=== PATIENT | male | born 1965 | race Hispanic/Latino ===

== ENCOUNTER → 2016-09-17 | Outpatient (CLI) | payer OTHER ==
[2016-09-17 13:15] LABS: ALBUMIN/GLOBULIN RATIO 1.33 (1.00-1.93); ALKALINE PHOSPHATASE 57 U/L (45-117); ALT/SGPT 33 U/L (12-78); ANION GAP 5 MEQ/L (8-16); AST/SGOT 21 U/L (15-37); BASO % 0.6 % (0.0-1.0); BLOOD UREA NITROGEN 21 MG/DL (7-18); CARBON DIOXIDE LEVEL 31 MEQ/L (21-32); CHLORIDE LEVEL 105 MEQ/L (98-107); CHOLESTEROL LEVEL 217 MG/DL (<200); CREATININE FOR GFR 1.14 MG/DL (0.70-1.30); EOS # 0.2 K/mm3 (0.0-0.50); EOS % 3.5 % (0.0-3.0); GLOMERULAR FILTRATION RATE > 60.0 (>60); GLUCOSE, FASTING 97 MG/DL (70-105); LARGE UNSTAINED CELL # 0.1 K/mm3 (0.0-0.4); LYMPH # 1.6 K/mm3 (1.5-4.5); LYMPH % 28.1 % (24.0-44.0); MAGNESIUM LEVEL 2.1 MG/DL (1.8-2.4); MEAN CORPUSCULAR HEMOGLOBIN 31.8 pg (27.0-33.0); MEAN CORPUSCULAR HGB CONC 34.5 g/dl (32.0-36.5); MEAN CORPUSCULAR VOLUME 92.2 fl (80.0-96.0); MONO # 0.4 K/mm3 (0.0-0.8); MONO % 7.6 % (0.0-5.0); NEUTROPHILS # 3.2 K/mm3 (1.8-7.7); NEUTROPHILS % 58.2 % (36.0-66.0); PLATELET COUNT, AUTOMATED 195 k/mm3 (150-450); POTASSIUM SERUM 4.3 MEQ/L (3.5-5.1); RED CELL DISTRIBUTION WIDTH 11.6 % (11.5-14.5); SODIUM LEVEL 141 MEQ/L (136-145); TRIGLYCERIDES LEVEL 82 MG/DL (<150); WHITE BLOOD COUNT 5.4 K/mm3 (4.0-10.0)
== END ==
LOC: M WUC 08:32
PROVIDERS: ATTEND Family Medicine
DX: R73.01 Impaired fasting glucose (principal)
CPT/HCPCS: 36415; 80053; 80061; 83036; 83735; 85025; G0103

== ENCOUNTER → 2016-11-30 | Outpatient (CLI) | payer OTHER ==
[~2016-11-30] MED LIST: CEPH500C PO; NAPR375T2 PO
[2016-11-30 13:47] LABS: BASO % 0.3 % (0.0-1.0); EOS # 0.1 K/mm3 (0.0-0.50); LARGE UNSTAINED CELL # 0.1 K/mm3 (0.0-0.4); LYMPH # 1.5 K/mm3 (1.5-4.5); LYMPH % 12.1 % (24.0-44.0); MEAN CORPUSCULAR HEMOGLOBIN 31.4 pg (27.0-33.0); MEAN CORPUSCULAR HGB CONC 34.1 g/dl (32.0-36.5); MEAN CORPUSCULAR VOLUME 92.1 fl (80.0-96.0); MONO # 0.8 K/mm3 (0.0-0.8); MONO % 7.3 % (0.0-5.0); NEUTROPHILS # 9.1 K/mm3 (1.8-7.7); NEUTROPHILS % 78.3 % (36.0-66.0); PLATELET COUNT, AUTOMATED 198 k/mm3 (150-450); RED CELL DISTRIBUTION WIDTH 11.7 % (11.5-14.5); WHITE BLOOD COUNT 11.6 K/mm3 (4.0-10.0)
== END ==
LOC: M WUC 09:24
PROVIDERS: ATTEND Physician Assistant
DX: M25.562 Pain in left knee (principal)

== ENCOUNTER 2016-12-03 14:19 | Inpatient (IN) | payer OTHER ==
[~2016-12-03] VITALS: Ht 182.9 cm; Wt 86.1 kg
[2016-12-03] MEDS ORDERED: ONDANSETRON 4MG/2ML VIAL (J2405) IV PRN (14:45)
[2016-12-03] MEDS ORDERED: PERCOCET 5MG/325MG TAB PO PRN (14:45)
[2016-12-03] MEDS ORDERED: ACETAMINOPHEN TAB 650MG DOSE (2X325MG) PO PRN (14:45)
[2016-12-03] MEDS ORDERED: CEPH500C PO (16:43)
[2016-12-03] MEDS ORDERED: NAPR375T2 PO (16:43)
[2016-12-03 16:54] LABS: BASO % 0.2 % (0.0-1.0); EOS # 0.2 K/mm3 (0.0-0.50); EOS % 2.4 % (0.0-3.0); LARGE UNSTAINED CELL # 0.1 K/mm3 (0.0-0.4); LARGE UNSTAINED CELL % 1.4 % (0.0-4.0); LYMPH # 1.6 K/mm3 (1.5-4.5); LYMPH % 16.2 % (24.0-44.0); MEAN CORPUSCULAR HEMOGLOBIN 31.8 pg (27.0-33.0); MEAN CORPUSCULAR HGB CONC 34.9 g/dl (32.0-36.5); MEAN CORPUSCULAR VOLUME 91.2 fl (80.0-96.0); MONO # 0.6 K/mm3 (0.0-0.8); NEUTROPHILS # 6.5 K/mm3 (1.8-7.7); NEUTROPHILS % 72.7 % (36.0-66.0); PLATELET COUNT, AUTOMATED 266 k/mm3 (150-450); RED CELL DISTRIBUTION WIDTH 11.5 % (11.5-14.5); WHITE BLOOD COUNT 8.9 K/mm3 (4.0-10.0)
[2016-12-03] MEDS ORDERED: cefTRIAXone SOD 2 GM in D5W MINI-BAG PLUS 50 ML IV SCH (17:00)
[2016-12-03 17:02] VITALS: BP 153/85
[2016-12-03 17:17] LABS: ALBUMIN 3.7 GM/DL (3.2-5.2); ALBUMIN/GLOBULIN RATIO 0.86 (1.00-1.93); ALKALINE PHOSPHATASE 65 U/L (45-117); ALT/SGPT 27 U/L (12-78); ANION GAP 6 MEQ/L (8-16); AST/SGOT 24 U/L (15-37); BILIRUBIN,TOTAL 0.6 MG/DL (0.2-1.0); BLOOD UREA NITROGEN 19 MG/DL (7-18); CALCIUM LEVEL 9.2 MG/DL (8.5-10.1); CARBON DIOXIDE LEVEL 30 MEQ/L (21-32); CHLORIDE LEVEL 103 MEQ/L (98-107); CREATININE FOR GFR 1.06 MG/DL (0.70-1.30); GLOMERULAR FILTRATION RATE > 60.0 (>56); GLUCOSE, FASTING 89 MG/DL (70-105); SODIUM LEVEL 139 MEQ/L (136-145)
--- NOTE | 2016-12-03 17:56 | REP ---
Clinical: Left lower extremity pain . Technique: Ervin scale and color Doppler evaluation using linear high frequency transducer. Findings: Ultrasound examination of the left lower extremity deep venous structures from the common femoral vein to the popliteal vein demonstrates normal compressibility flow and wave patterns in response to respiration and augmentation. There is no evidence for deep venous thrombosis. Incidental note is made of duplicated mid to distal superficial femoral vein along with reflux at the popliteal vein. Impression: No evidence for deep venous thrombosis. Signed by Alexei Lindo MD 12/03/2016 05:47 P
[2016-12-03] MEDS: VANCOMYCIN HCL 1,000 MG, VIAL MATE ADAPTER 1 EACH in D5W 250 ML IV SCH ×2 (18:08→21:01)
[2016-12-03] MEDS ORDERED: ISOVUE-370 76% 100ML VIAL (Q9967) As Ordered ONE (19:11)
[2016-12-03] MEDS ORDERED: VANCOMYCIN HCL 500 MG in D5W MINI-BAG PLUS 100 ML IV ONE (21:00)
[2016-12-03 22:00] VITALS: BP 138/82
[2016-12-03] MEDS: cefTRIAXone SOD 2 GM in D5W MINI-BAG PLUS 50 ML IV SCH (22:28)
[2016-12-04] MEDS: VANCOMYCIN HCL 1,000 MG, VIAL MATE ADAPTER 1 EACH in D5W 250 ML IV SCH ×2 (05:38→17:27)
[2016-12-04 06:00] VITALS: BP 125/62
[2016-12-04 06:15] LABS: BASO % 0.4 % (0.0-1.0); EOS # 0.3 K/mm3 (0.0-0.50); EOS % 3.6 % (0.0-3.0); LARGE UNSTAINED CELL # 0.2 K/mm3 (0.0-0.4); LARGE UNSTAINED CELL % 2.6 % (0.0-4.0); LYMPH # 1.6 K/mm3 (1.5-4.5); LYMPH % 22.7 % (24.0-44.0); MEAN CORPUSCULAR HEMOGLOBIN 32.5 pg (27.0-33.0); MEAN CORPUSCULAR HGB CONC 35.1 g/dl (32.0-36.5); MEAN CORPUSCULAR VOLUME 92.5 fl (80.0-96.0); MONO # 0.6 K/mm3 (0.0-0.8); NEUTROPHILS # 4.5 K/mm3 (1.8-7.7); NEUTROPHILS % 62.8 % (36.0-66.0); PLATELET COUNT, AUTOMATED 309 k/mm3 (150-450); RED CELL DISTRIBUTION WIDTH 11.3 % (11.5-14.5); WHITE BLOOD COUNT 7.2 K/mm3 (4.0-10.0)
[2016-12-04 06:39] LABS: ERYTHROCYTE SEDIMENTATION RATE 39 mm/hr (0-20)
[2016-12-04 06:52] LABS: ALBUMIN 3.6 GM/DL (3.2-5.2); ALBUMIN/GLOBULIN RATIO 0.97 (1.00-1.93); ALKALINE PHOSPHATASE 66 U/L (45-117); ALT/SGPT 26 U/L (12-78); ANION GAP 7 MEQ/L (8-16); AST/SGOT 21 U/L (15-37); BILIRUBIN,TOTAL 0.6 MG/DL (0.2-1.0); BLOOD UREA NITROGEN 15 MG/DL (7-18); CALCIUM LEVEL 8.6 MG/DL (8.5-10.1); CARBON DIOXIDE LEVEL 28 MEQ/L (21-32); CHLORIDE LEVEL 105 MEQ/L (98-107); CREATININE FOR GFR 1.01 MG/DL (0.70-1.30); GLOMERULAR FILTRATION RATE > 60.0 (>56); GLUCOSE, FASTING 89 MG/DL (70-105); POTASSIUM SERUM 4.6 MEQ/L (3.5-5.1); SODIUM LEVEL 140 MEQ/L (136-145); TOTAL PROTEIN 7.3 GM/DL (6.4-8.2)
[2016-12-04] MEDS: ENOXAPARIN 40 MG/0.4 ML SYRINGE (J1650) SC SCH (09:10)
[2016-12-04 14:00] VITALS: BP 136/63
--- NOTE | 2016-12-04 14:30 | REP ---
Clinical: Cellulitis. Evaluate for septic arthritis and abscess. Technique: Axial contrast enhanced images from the femoral metaphysis to the distal tibial metadiaphysis using 100 ml Isovue 370 intravenous contrast material with coronal and sagittal re-formations. Findings: Extensive subcutaneous infiltration and inflammatory stranding is appreciated with small amounts of ill-defined fluid along the anterior lateral margin of the holguin. Findings are compatible with cellulitis. There is minimal amount of joint fluid without significant effusion. There is no abscess or drainable collection. The visualized muscular compartments and neural vascular bundle appear relatively normal. The osseous structures are intact. Impression: Evidence for cellulitis and minimal, likely normal amount of joint fluid. No line No significant joint or suprapatellar effusion and no evidence for drainable collection/abscess. Signed by Alexei Lindo MD 12/04/2016 02:21 P
--- NOTE | 2016-12-04 15:41 | IPNPDOC ---
Subjective Date Seen The patient was seen on 12/04/16. Subjective Chief Complaint/HPI The patient is a 51-year-old male admitted with a reason for visit of Cellulitis. Constitutional: Reports: Chills Eyes: Denies: Pain ENT: Denies: Head Aches Pulmonary: Denies: Dyspnea Cardiovascular: Denies: Chest Pain Gastrointestinal: Denies: Nausea, Vomiting Genitourinary: Denies: Dysuria Hematologic: Denies: Bruising Objective Physical Examination Eye Exam: Positive: PERRLA ENT Exam: Positive: Atraumatic Neck Exam: Positive: Supple Chest Exam: Positive: Clear to auscultation Heart Exam: Positive: Rate Normal Abdomen Exam: Positive: Normal bowel sounds Extremity Exam: Positive: Edema (LLE minimal, 50% improved induration/warmth/ edema) Assessment /Plan Problems (1) Cellulitis Status: Acute Response to Treatment: Improving Problem Text: D2 vanco/ceftriaxone failed outpatient cephalexin 500 TID 12/04 Tm 99.1, WBC down to 7.2 , ESR 49-39, CRP 11-8 12/03 BCX - x 2 12/03 - LLE DVT US 12/03 CT L LE s/c (KELLY non-functional), c/w cellulitis L LE anterior/lateral aspect, minimal/normal joint fluid, no abscess Plan/VTE VTE Prophylaxis Ordered?: Yes Disposition plan home 12/05 vs 12/06 VS, I&O, 24H, Fishbone Vital Signs/I&O Vital Signs Date Time Temp Pulse Resp B/P (MAP) Pulse Ox O2 Delivery O2 Flow Rate FiO2 12/04/16 14:00 98.6 69 17 136/63 (87) 96 Room Air I&O- Last 24 Hours up to 6 AM 12/04/16 06:00 Intake Total 860 ml Output Total 0 ml Balance 860 ml Laboratory Data 24H LABS Laboratory Tests 2 12/03/16 16:36: White Blood Count 8.9, Red Blood Count 4.39, Hemoglobin 14.0, Hematocrit 40.0L, Mean Corpuscular Volume 91.2, Mean Corpuscular Hemoglobin 31.8, Mean Corpuscular Hemoglobin Concent 34.9, Red Cell Distribution Width 11.5, Platelet Count 266, Neutrophils (%) (Auto) 72.7H, Lymphocytes (%) (Auto) 16.2L, Monocytes (%) (Auto) 7.0H, Eosinophils (%) (Auto) 2.4, Basophils (%) (Auto) 0.2 , Neutrophils # (Auto) 6.5, Lymphocytes # (Auto) 1.6, Monocytes # (Auto) 0.6, Eosinophils # (Auto) 0.2, Basophils # (Auto) 0.0, Large Unclassified Cells % 1.4 , Large Unclassified Cells # 0.1, Erythrocyte Sedimentation Rate 49H, Anion Gap 6L, Glomerular Filtration Rate > 60.0, Blood Urea Nitrogen 19H, Creatinine 1.06 , Sodium Level 139, Potassium Level 4.0, Chloride Level 103, Carbon Dioxide Level 30, Calcium Level 9.2, Aspartate Amino Transf (AST/SGOT) 24, Alanine Aminotransferase (ALT/SGPT) 27, Alkaline Phosphatase 65, Total Bilirubin 0.6, Total Protein 8.0, Albumin 3.7, C-Reactive Protein, Quantitative 10.50H, Albumin /Globulin Ratio 0.86L 12/04/16 05:28: White Blood Count 7.2, Red Blood Count 4.65, Hemoglobin 15.1, Hematocrit 43.0, Mean Corpuscular Volume 92.5, Mean Corpuscular Hemoglobin 32.5, Mean Corpuscular Hemoglobin Concent 35.1, Red Cell Distribution Width 11.3L, Platelet Count 309, Neutrophils (%) (Auto) 62.8, Lymphocytes (%) (Auto) 22.7L, Monocytes (%) (Auto) 8.0H, Eosinophils (%) (Auto) 3.6H, Basophils (%) (Auto) 0.4 , Neutrophils # (Auto) 4.5, Lymphocytes # (Auto) 1.6, Monocytes # (Auto) 0.6, Eosinophils # (Auto) 0.3, Basophils # (Auto) 0.0, Large Unclassified Cells % 2.6 , Large Unclassified Cells # 0.2, Erythrocyte Sedimentation Rate 39H, Anion Gap 7L, Glomerular Filtration Rate > 60.0, Blood Urea Nitrogen 15, Creatinine 1.01, Sodium Level 140, Potassium Level 4.6, Chloride Level 105, Carbon Dioxide Level 28, Calcium Level 8.6, Aspartate Amino Transf (AST/SGOT) 21, Alanine Aminotransferase (ALT/SGPT) 26, Alkaline Phosphatase 66, Total Bilirubin 0.6, Total Protein 7.3, Albumin 3.6, C-Reactive Protein, Quantitative 8.35H, Albumin/ Globulin Ratio 0.97L CBC/BMP Laboratory Tests 12/03/16 16:36 Red Blood Count 4.39, Mean Corpuscular Volume 91.2, Mean Corpuscular Hemoglobin 31.8, Mean Corpuscular Hemoglobin Concent 34.9, Red Cell Distribution Width 11.5 , Neutrophils (%) (Auto) 72.7 H, Lymphocytes (%) (Auto) 16.2 L, Monocytes (%) ( Auto) 7.0 H, Eosinophils (%) (Auto) 2.4, Basophils (%) (Auto) 0.2, Neutrophils # (Auto) 6.5, Lymphocytes # (Auto) 1.6, Monocytes # (Auto) 0.6, Eosinophils # ( Auto) 0.2, Basophils # (Auto) 0.0, Calcium Level 9.2, Aspartate Amino Transf ( AST/SGOT) 24, Alanine Aminotransferase (ALT/SGPT) 27, Alkaline Phosphatase 65, Total Bilirubin 0.6, Total Protein 8.0, Albumin 3.7 12/04/16 05:28 Red Blood Count 4.65, Mean Corpuscular Volume 92.5, Mean Corpuscular Hemoglobin 32.5, Mean Corpuscular Hemoglobin Concent 35.1, Red Cell Distribution Width 11.3 L, Neutrophils (%) (Auto) 62.8, Lymphocytes (%) (Auto) 22.7 L, Monocytes (% ) (Auto) 8.0 H, Eosinophils (%) (Auto) 3.6 H, Basophils (%) (Auto) 0.4, Neutrophils # (Auto) 4.5, Lymphocytes # (Auto) 1.6, Monocytes # (Auto) 0.6, Eosinophils # (Auto) 0.3, Basophils # (Auto) 0.0, Calcium Level 8.6, Aspartate Amino Transf (AST/SGOT) 21, Alanine Aminotransferase (ALT/SGPT) 26, Alkaline Phosphatase 66, Total Bilirubin 0.6, Total Protein 7.3, Albumin 3.6 Microbiology Microbiology 12/03/16 Blood Culture, Received Pending 12/03/16 Blood Culture, Received Pending Myles Clemente M.D. December 04, 2016 15:41
[2016-12-04] MEDS: cefTRIAXone SOD 2 GM in D5W MINI-BAG PLUS 50 ML IV SCH (21:30)
[2016-12-04 21:58] VITALS: BP 137/73
[2016-12-05] VITALS: BP 120/57
--- NOTE | 2016-12-05 02:11 | CR ---
DATE OF CONSULTATION: 12/04/2016 I was asked to see this gentleman at the request of a care drafter commercial for Dr. Clemente to evaluate potential knee infection. HISTORY: This 51-year-old male was doing some work under a crawlspace, developed some redness and swelling in the leg. He was seen by primary provider who put him on oral antibiotics, which did not seem to work. The swelling became worse. He was sent into the emergency room (ER) with swelling in the left lower extremity. They did a CT scan that did not reveal any joint effusion. He was admitted to the floor where the nurse did not think he had a joint infection, but thought he had a cellulitis. He was on antibiotics on the floor and had a dramatic response so far to antibiotics over the course of the last 12 hours. ALLERGIES: He has no known drug allergies. He is otherwise healthy. EXAMINATION: No joint effusion. Mild edema left lower extremity. Currently no erythema in the left lower extremity. He is able flex and extend the knee actively in his room today. IMPRESSION: No evidence of joint effusion, likely cellulitis, which seems to be resolving quickly with intravenous antibiotics. RECOMMENDATIONS: Continued followup plans with primary team, as needed orthopedic followup.
[2016-12-05 04:00] VITALS: BP 109/56
[2016-12-05] MEDS: VANCOMYCIN HCL 1,000 MG, VIAL MATE ADAPTER 1 EACH in D5W 250 ML IV SCH (06:30)
[2016-12-05 06:43] LABS: BASO % 0.6 % (0.0-1.0); EOS # 0.3 K/mm3 (0.0-0.50); EOS % 4.7 % (0.0-3.0); LARGE UNSTAINED CELL # 0.2 K/mm3 (0.0-0.4); LARGE UNSTAINED CELL % 2.5 % (0.0-4.0); LYMPH # 1.6 K/mm3 (1.5-4.5); MEAN CORPUSCULAR VOLUME 91.1 fl (80.0-96.0); MONO # 0.5 K/mm3 (0.0-0.8); MONO % 7.2 % (0.0-5.0); NEUTROPHILS # 4.4 K/mm3 (1.8-7.7); NEUTROPHILS % 63.9 % (36.0-66.0); PLATELET COUNT, AUTOMATED 257 k/mm3 (150-450); RED CELL DISTRIBUTION WIDTH 11.4 % (11.5-14.5); WHITE BLOOD COUNT 6.9 K/mm3 (4.0-10.0)
[2016-12-05 07:09] LABS: ALBUMIN 2.9 GM/DL (3.2-5.2); ALBUMIN/GLOBULIN RATIO 0.85 (1.00-1.93); ALKALINE PHOSPHATASE 58 U/L (45-117); ALT/SGPT 24 U/L (12-78); ANION GAP 7 MEQ/L (8-16); AST/SGOT 14 U/L (15-37); BILIRUBIN,TOTAL 0.4 MG/DL (0.2-1.0); BLOOD UREA NITROGEN 23 MG/DL (7-18); CALCIUM LEVEL 8.2 MG/DL (8.5-10.1); CARBON DIOXIDE LEVEL 27 MEQ/L (21-32); CHLORIDE LEVEL 105 MEQ/L (98-107); CREATININE FOR GFR 0.95 MG/DL (0.70-1.30); GLOMERULAR FILTRATION RATE > 60.0 (>56); GLUCOSE, FASTING 101 MG/DL (70-105); POTASSIUM SERUM 4.4 MEQ/L (3.5-5.1); SODIUM LEVEL 139 MEQ/L (136-145); TOTAL PROTEIN 6.3 GM/DL (6.4-8.2)
[2016-12-05 08:00] VITALS: BP 131/67
[2016-12-05] MEDS: ENOXAPARIN 40 MG/0.4 ML SYRINGE (J1650) SC SCH (09:09)
--- NOTE | 2016-12-05 15:52 | DSES ---
DATE OF ADMISSION: 12/03/2016 DATE OF DISCHARGE: 12/05/2016 DISCHARGE DIAGNOSES: 1. Skin and soft tissue infection left lower extremity, failing outpatient treatment. 2. Recurrent intranasal ulcers. HOSPITAL COURSE: The patient's erythema, tenderness and induration of the left lower extremity markedly improved during hospitalization on ceftriaxone 2 grams intravenous (IV) daily, and vancomycin for goal trough of 15-20. On the day of discharge, his white count was down to 6.9. C-reactive protein (CRP) was down to 3.6 from 10.5 at admission. White count on admission was 8.9. By the day of discharge, he was not having night sweats and temperature maximum (T-max) on day of discharge was 99.1. Blood cultures times two were negative. Nasal methicillin-resistant Staphylococcus aureus (MRSA) screen was still pending. The patient has had no previous history of MRSA but he does work as a speech therapist, and has had chronic, recurrent nasal septal ulcerations. The patient was discharged to home on amoxicillin 500 by mouth three times a day for strep coverage, and Bactrim DS twice a day times 10 days for unlikely but possible MRSA infection. Nasal MRSA screen is pending as above. He is advised light duty at work with no work on his knees and to call back to the doctor electronic technician if there is any recurrence, worsening symptoms. He is advised to make followup with primary care provider (PCP) on 12/07/2016. The patient was also prescribed mupirocin ointment to use twice a day intranasally times 21 days.
== END 2016-12-05 13:42 | disposition home or self-care (01) | DRG 383 ==
LOC: EEVIPCON 16:17 → M MSPAV 16:17 → M PED 12-04 22:09
PROVIDERS: ADMIT Family Medicine; ATTEND Family Medicine
DX: L03.116 Cellulitis of left lower limb (principal); B95.62 Methicillin resistant Staphylococcus aureus infection as the cause of diseases classified elsewhere; J34.0 Abscess, furuncle and carbuncle of nose

== ENCOUNTER 2017-07-27 08:37 | Day surgery (SDC) | payer OTHER ==
[2017-07-27] MEDS ORDERED: PROPOFOL 200 MG/20 ML VIAL As Ordered (08:42)
[2017-07-27] MEDS ORDERED: LIDOCAINE 2% INJ 100 MG/5 ML SDV (FOR ANES.) As Ordered (08:42)
[2017-07-27] MEDS: NS 1,000 ML IV (08:45)
== END 2017-07-27 10:45 | disposition home or self-care (01) ==
LOC: M OPP 08:37
DX: Z12.11 Encounter for screening for malignant neoplasm of colon (principal); K22.10 Ulcer of esophagus without bleeding; K22.0 Achalasia of cardia; R12 Heartburn; K22.2 Esophageal obstruction; M54.5 Low back pain; F32.9 Major depressive disorder, single episode, unspecified; F41.9 Anxiety disorder, unspecified; L40.9 Psoriasis, unspecified
CPT/HCPCS: 45378

== ENCOUNTER → 2018-10-07 | Outpatient (CLI) | payer OTHER, BC ==
[~2018-10-07] MED LIST changes: +NAPR-855 PO; -NAPR375T2 PO
[2018-10-07 18:33] LABS: AMORPHOUS SEDIMENT MODERATE (NEGATIVE); APPEARANCE, URINE TURBID (CLEAR); BACTERIA, URINE AUTO NEGATIVE (NEGATIVE); BILIRUBIN, URINE AUTO NEGATIVE (NEGATIVE); BLOOD, URINE BLOOD NEGATIVE (NEGATIVE); COLOR, URINE AMBER (YELLOW); GLUCOSE, URINE (UA) AUTO NEGATIVE (NEGATIVE); KETONE, URINE AUTO NEGATIVE (NEGATIVE); LEUKOCYTE ESTERASE, URINE AUTO NEGATIVE (NEGATIVE); MUCUS, URINE SMALL (NEGATIVE); NITRITE, URINE AUTO NEGATIVE (NEGATIVE); PROTEIN, URINE AUTO NEGATIVE (NEGATIVE); RBC, URINE AUTO 1 /HPF (0-3); SPECIFIC GRAVITY URINE AUTO 1.024 (1.002-1.035); SQUAMOUS EPITHELIAL CELL UR AU 0 /HPF (0-6); UROBILINOGEN, URINE AUTO 0.2 mg/dL (0.0-2.0); WBC, URINE AUTO 0 /HPF (0-3)
[2018-10-07 18:34] LABS: C REACTIVE PROTEIN QUANTITATIV 0.34 MG/DL (0.00-0.30); CHOLESTEROL RISK RATIO 5.057 (<5); FREE T4 0.94 NG/DL (0.76-1.46); THYROID STIMULATING HORMONE 0.921 uIU/ML (0.358-3.740)
[2018-10-07 19:17] LABS: MALB URINE SIEMENS 14.4 MG/L; MAU/CREAT RATIO 5.1 MCG/MG (0.0-30.0)
[2018-10-07 19:41] LABS: HEMOGLOBIN A1c 4.6 %
[2018-10-09 10:14] LABS: THYROID PEROXIDASE ANTIBODY 30.9 U/ML (<60.0)
== END ==
LOC: M WUC 09:23
PROVIDERS: ATTEND Family Medicine
DX: Z12.5 Encounter for screening for malignant neoplasm of prostate (principal); E78.2 Mixed hyperlipidemia; R73.01 Impaired fasting glucose
CPT/HCPCS: 36415; 80061; 81001; 82043; 82550; 83036; 83525; 84439; 84443; 86140; 86376; G0103

== ENCOUNTER → 2019-02-01 | Outpatient (CLI) | payer BC ==
--- NOTE | 2019-02-01 18:33 | REP ---
Lumbar spine series: Seven views including flexion extension views. History: Lumbar spondylosis. Progressive low back pain. Findings: There is a minimal dextroconvex curvature in the lumbar spine on the AP view. Lumbar vertebral body heights are preserved. There is discogenic spurring and disc space narrowing throughout the lumbar spine. This is most pronounced at L3-4 and L2-3. Flexion/extension lateral views show no subluxation or instability. There is some limitation of flexion/extension range of motion. Pedicles and posterior elements are intact. There is no evidence of spondylolysis or spondylolisthesis. There is mild facet hypertrophy bilaterally at L4-5. Impression: Degenerative disc disease diffusely. Facet hypertrophy and sclerosis bilaterally at L4-5. No subluxation or instability. Electronically Signed by Marek Mancia MD 02/01/2019 07:28 P
== END ==
LOC: M WUC 17:19
PROVIDERS: ATTEND Family Medicine
DX: M47.816 Spondylosis without myelopathy or radiculopathy, lumbar region (principal)

== ENCOUNTER → 2020-02-08 | Outpatient (REF) | payer BC ==
[2020-03-07 10:40] LABS: BLOOD UREA NITROGEN 25 MG/DL (7-18); CREATININE FOR GFR 1.02 MG/DL (0.70-1.30); GLUCOSE, FASTING 81 MG/DL (70-100)
[2020-03-07 10:41] LABS: ALT/SGPT 24 IU/L (0-32); BILIRUBIN,TOTAL 0.9 MG/DL (0.2-1.0); CALCIUM LEVEL 9.1 MG/DL (8.5-10.1); CARBON DIOXIDE LEVEL 29 mmol/L (20-29); CHLORIDE LEVEL 108 MEQ/L (98-107); GLOMERULAR FILTRATION RATE > 60.0 (>56); POTASSIUM SERUM 4.2 MEQ/L (3.5-5.1); SODIUM LEVEL 138 MEQ/L (136-145); TRIGLYCERIDES LEVEL 87 MG/DL (<150)
[2020-03-07 10:42] LABS: ALBUMIN 4.2 GM/DL (3.2-5.2); C REACTIVE PROTEIN QUANTITATIV < 0.30 MG/DL (0.00-0.30); CHOLESTEROL LEVEL 212 MG/DL (<200); CHOLESTEROL RISK RATIO 4.326 (<5); HDL CHOLESTEROL 49 MG/DL (>40); LDL CHOLESTEROL 145.6 MG/DL (<100); NON-HDL-C 163 MG/DL; TOTAL PROTEIN 7.1 GM/DL (6.4-8.2)
== END ==
LOC: M LAB REF 06:59
PROVIDERS: ATTEND Family Medicine
DX: E78.2 Mixed hyperlipidemia (principal)

== ENCOUNTER → 2020-02-09 | Outpatient (REF) | payer BC ==
[2020-05-01 10:10] LABS: INSULIN LEVEL 4.7 uIU/mL (2.6-24.9); TESTOSTERONE FREE (DIRECT) 8.4 pg/mL (7.2-24.0)
== END ==
LOC: M SFHCPLAZ 08:59
PROVIDERS: ATTEND Family Medicine
DX: R73.01 Impaired fasting glucose (principal); L40.9 Psoriasis, unspecified

== ENCOUNTER → 2020-02-23 | Outpatient (REF) | payer BC ==
[2020-03-27 21:46] LABS: ALBUMIN 3.9 GM/DL (3.2-5.2); ALT/SGPT 30 U/L (12-78); BILIRUBIN,TOTAL 0.6 MG/DL (0.2-1.0); BLOOD UREA NITROGEN 26 MG/DL (7-18); CALCIUM LEVEL 8.9 MG/DL (8.5-10.1); CARBON DIOXIDE LEVEL 30 MEQ/L (21-32); CHLORIDE LEVEL 108 MEQ/L (98-107); CHOLESTEROL LEVEL 198 MG/DL (<200); CHOLESTEROL RISK RATIO 4.304 (<5); CREATININE FOR GFR 1.04 MG/DL (0.70-1.30); GLOMERULAR FILTRATION RATE > 60.0 (>56); GLUCOSE, FASTING 92 MG/DL (70-100); HDL CHOLESTEROL 46 MG/DL (>40); LDL CHOLESTEROL 131 MG/DL (<100); NON-HDL-C 152 MG/DL; POTASSIUM SERUM 4.3 MEQ/L (3.5-5.1); SODIUM LEVEL 143 MEQ/L (136-145); TOTAL PROTEIN 6.9 GM/DL (6.4-8.2); TRIGLYCERIDES LEVEL 105 MG/DL (<150)
[2020-03-27 21:47] LABS: HEMOGLOBIN A1c 4.7 %
== END ==
LOC: M WUC 10:12
PROVIDERS: ATTEND Family Medicine
DX: R73.01 Impaired fasting glucose (principal); Z12.11 Encounter for screening for malignant neoplasm of colon; E78.2 Mixed hyperlipidemia; Z12.5 Encounter for screening for malignant neoplasm of prostate

== ENCOUNTER → 2020-06-24 | Outpatient (CLI) | payer SELFPAY | LOC: M LABSMTC 17:34 | PROVIDERS: ATTEND Pediatrics | DX: Z11.59 Encounter for screening for other viral diseases (principal) ==

== ENCOUNTER → 2020-12-16 | Outpatient (CLI) | payer BC ==
[2020-12-16 10:14] LABS: BASO % 0.5 % (0.0-1.0); EOS # 0.2 10^3/uL (0.0-0.5); EOS % 3.3 % (0.0-3.0); HEMATOCRIT 49.9 % (42.0-52.0); HEMOGLOBIN 17.1 g/dl (13.5-17.5); LYMPH # 1.7 10^3/uL (1.5-5.0); LYMPH % 28.6 % (24.0-44.0); MEAN CORPUSCULAR HEMOGLOBIN 31.4 pg (27.0-33.0); MEAN CORPUSCULAR HGB CONC 34.3 g/dl (32.0-36.5); MEAN CORPUSCULAR VOLUME 91.7 fl (80.0-96.0); MONO # 0.6 10^3/uL (0.0-0.8); MONO % 10.2 % (2.0-8.0); NEUTROPHILS # 3.3 10^3/uL (1.5-8.5); NEUTROPHILS % 57.2 % (36.0-66.0); PLATELET COUNT, AUTOMATED 214 10^3/uL (150-450); RED BLOOD COUNT 5.44 10^6/uL (4.30-6.10); WHITE BLOOD COUNT 5.8 10^3/uL (4.0-10.0)
[2020-12-16 10:46] LABS: HEMOGLOBIN A1c 4.5 %
[2020-12-16 10:58] LABS: ALBUMIN 3.9 GM/DL (3.2-5.2); ALT/SGPT 20 U/L (12-78); BILIRUBIN,TOTAL 1.1 MG/DL (0.2-1.0); BLOOD UREA NITROGEN 22 MG/DL (7-18); CALCIUM LEVEL 9.2 MG/DL (8.5-10.1); CARBON DIOXIDE LEVEL 28 MEQ/L (21-32); CHLORIDE LEVEL 104 MEQ/L (98-107); CHOLESTEROL LEVEL 230 MG/DL (<200); CHOLESTEROL RISK RATIO 4.339 (<5); CREATININE FOR GFR 1.05 MG/DL (0.70-1.30); GLOMERULAR FILTRATION RATE > 60.0 (>56); GLUCOSE, FASTING 95 MG/DL (70-100); HDL CHOLESTEROL 53 MG/DL (>40); LDL CHOLESTEROL 157 MG/DL (<100); NON-HDL-C 177 MG/DL; POTASSIUM SERUM 4.3 MEQ/L (3.5-5.1); PTH INTACT 53.5 PG/ML (18.5-88.0); SODIUM LEVEL 138 MEQ/L (136-145); TOTAL 25(OH) VITAMIN D 29.6 NG/ML (30.0-100.0); TRIGLYCERIDES LEVEL 102 MG/DL (<150)
[2020-12-16 11:10] LABS: MALB URINE SIEMENS 11.7 MG/L; MAU/CREAT RATIO 3.4 MCG/MG (0.0-30.0)
== END ==
LOC: M WUC 08:24
PROVIDERS: ATTEND Family Medicine
DX: E78.2 Mixed hyperlipidemia (principal); Z12.5 Encounter for screening for malignant neoplasm of prostate; R73.01 Impaired fasting glucose; L40.9 Psoriasis, unspecified
CPT/HCPCS: 36415; 80053; 80061; 82043; 82306; 83036; 83525; 83970; 85025; 86140; G0103

== ENCOUNTER → 2022-05-03 | Outpatient (CLI) | payer BC, OTHER ==
[2022-05-03 12:13] LABS: ALBUMIN 3.9 GM/DL (3.2-5.2); ALT/SGPT 30 U/L (12-78); BILIRUBIN,TOTAL 0.8 MG/DL (0.2-1.0); BLOOD UREA NITROGEN 21 MG/DL (7-18); CARBON DIOXIDE LEVEL 29 MEQ/L (21-32); CHLORIDE LEVEL 107 MEQ/L (98-107); CHOLESTEROL LEVEL 199 MG/DL (<200); CHOLESTEROL RISK RATIO 3.754 (<5); CREATININE FOR GFR 1.18 MG/DL (0.70-1.30); FREE T4 0.87 NG/DL (0.76-1.46); GLOMERULAR FILTRATION RATE > 60.0 (>56); GLUCOSE, FASTING 96 MG/DL (70-100); HDL CHOLESTEROL 53 MG/DL (>40); LDL CHOLESTEROL 126 MG/DL (<100); NON-HDL-C 146 MG/DL; SODIUM LEVEL 139 MEQ/L (136-145); TOTAL PROTEIN 6.9 GM/DL (6.4-8.2); TRIGLYCERIDES LEVEL 102 MG/DL (<150)
[2022-05-04 08:09] LABS: APOLIPOPROTEIN B/A-1 RATIO 0.7 ratio (0.0-0.7)
== END ==
LOC: M WUC 08:05
PROVIDERS: ATTEND Family Medicine
DX: E78.2 Mixed hyperlipidemia (principal); Z12.5 Encounter for screening for malignant neoplasm of prostate
CPT/HCPCS: 36415; 80053; 80061; 82172; 82550; 84439; 84443; 86140; G0103

== ENCOUNTER → 2022-11-08 | Outpatient (REF) | payer OTHER | LOC: M SFHCPLAZ 17:20 | PROVIDERS: ATTEND Family Medicine | DX: Z12.5 Encounter for screening for malignant neoplasm of prostate (principal); E78.2 Mixed hyperlipidemia; K21.00 Gastro-esophageal reflux disease with esophagitis, without bleeding; K58.0 Irritable bowel syndrome with diarrhea; Z53.9 Procedure and treatment not carried out, unspecified reason ==

== ENCOUNTER → 2023-11-14 | Outpatient (REF) | payer OTHER | LOC: M SFHCPLAZ 14:34 | PROVIDERS: ATTEND Family Medicine | DX: Z12.5 Encounter for screening for malignant neoplasm of prostate (principal); E78.2 Mixed hyperlipidemia; R73.01 Impaired fasting glucose ==

== ENCOUNTER → 2024-04-28 | Outpatient (CLI) | payer OTHER ==
[2024-04-28 09:46] LABS: CREATININE, URINE 109.8 MG/DL; MALB URINE SIEMENS < 3.0 MG/L; MAU/CREAT RATIO 2.7 MCG/MG (0.0-30.0)
[2024-04-28 09:48] LABS: ALKALINE PHOSPHATASE 53 U/L (46-116); ALT/SGPT 41 U/L (7.0-40); AST/SGOT 26 U/L (<34); BLOOD UREA NITROGEN 26 MG/DL (9-23); CALCIUM LEVEL 9.8 MG/DL (8.5-10.1); CARBON DIOXIDE LEVEL 29 MMOL/L (20-31); CHLORIDE LEVEL 108 MMOL/L (98-107); CHOLESTEROL LEVEL 211 MG/DL (<200); CHOLESTEROL RISK RATIO 4.27 (<5); CREATININE FOR GFR 0.94 MG/DL (0.70-1.30); GLOMERULAR FILTRATION RATE > 60.0 (>56); GLUCOSE, FASTING 94 MG/DL (60-100); HDL CHOLESTEROL 49.3 MG/DL (>40); IRON (FE) 105 UG/DL (65-175); LDL CHOLESTEROL 144.5 MG/DL (<100); NON-HDL-C 161.7 MG/DL; PERCENT SATURATION 38.2 % (19.7-50.0); POTASSIUM SERUM 4.7 MMOL/L (3.5-5.1); PSA SCREENING 1.89 NG/ML (< 4.00); SODIUM LEVEL 139 MMOL/L (136-145); TOTAL IRON BINDING CAPACITY 275 UG/DL (250-425); TOTAL PROTEIN 6.8 G/DL (5.7-8.2); TRIGLYCERIDES LEVEL 86 MG/DL (<150)
[2024-04-28 09:50] LABS: FERRITIN 398.2 NG/ML (10.5-307.3); HEMOGLOBIN A1c 4.4 % (4.0-6.0)
[2024-05-01 09:07] LABS: INSULIN LEVEL 3.2 uIU/mL (<=18.4)
== END ==
LOC: M LAB 08:04
PROVIDERS: ATTEND Family Medicine
DX: E83.110 Hereditary hemochromatosis (principal); R73.01 Impaired fasting glucose; E78.2 Mixed hyperlipidemia; Z12.5 Encounter for screening for malignant neoplasm of prostate
CPT/HCPCS: 36415; 80053; 80061; 81596; 82043; 82728; 83036; 83525; 83550; 84238; G0103

== ENCOUNTER → 2024-11-05 | Outpatient (CLI) | payer OTHER ==
[2024-11-05 07:03] LABS: PARTIAL THROMBOPLASTIN TIME 29.7 SECONDS (24.8-34.2); PROTHROMBIN TIME 13.5 SECONDS (12.5-14.5)
[2024-11-05 07:26] LABS: IRON (FE) 116 UG/DL (65-175); PERCENT SATURATION 45.3 % (19.7-50.0); TOTAL IRON BINDING CAPACITY 256 UG/DL (250-425)
[2024-11-05 07:27] LABS: ALBUMIN 3.5 G/DL (3.2-5.2); ALKALINE PHOSPHATASE 47 U/L (40-129); ALT/SGPT 31 U/L (7.0-40); AST/SGOT 26 U/L (<34); BILIRUBIN,TOTAL 0.7 MG/DL (0.3-1.2); BLOOD UREA NITROGEN 21 MG/DL (9-23); CALCIUM LEVEL 9.2 MG/DL (8.5-10.1); CARBON DIOXIDE LEVEL 32 MMOL/L (20-31); CHLORIDE LEVEL 104 MMOL/L (98-107); CHOLESTEROL LEVEL 199 MG/DL (<200); CHOLESTEROL RISK RATIO 4.69 (<5); CREATININE FOR GFR 1.08 MG/DL (0.70-1.30); GLUCOSE, FASTING 102 MG/DL (60-100); HDL CHOLESTEROL 42.4 MG/DL (>40); LDL CHOLESTEROL 129.8 MG/DL (<100); NON-HDL-C 156.6 MG/DL; POTASSIUM SERUM 4.3 MMOL/L (3.5-5.1); SODIUM LEVEL 142 MMOL/L (136-145); TOTAL PROTEIN 6.3 G/DL (5.7-8.2); TRIGLYCERIDES LEVEL 134 MG/DL (<150)
[2024-11-05 07:29] LABS: FERRITIN 483.5 NG/ML (10.5-307.3)
[2024-11-05 08:07] LABS: HEPATITIS B SURFACE ANTIGEN NEGATIVE (NEGATIVE)
[2024-11-05 08:28] LABS: HEPATITIS C VIRUS ABY INDEX 0.02 INDEX (<0.8)
[2024-11-05 08:33] LABS: HEMOGLOBIN A1c 4.2 % (4.0-6.0)
[2024-11-06 09:42] LABS: INSULIN LEVEL 5.2 uIU/mL (<=18.4)
[2024-11-06 14:42] LABS: ANTI-MITOCHONDRIAL ANTIBODY NEGATIVE (NEGATIVE)
[2024-11-06 15:32] LABS: ANA SCREEN, IFA NEGATIVE (NEGATIVE)
== END ==
LOC: M LAB 06:08
PROVIDERS: ATTEND Family Medicine
DX: E78.2 Mixed hyperlipidemia (principal)